=== PATIENT | male | born 1980 | race Caucasian/White ===

== ENCOUNTER 2018-10-21 08:49 | Emergency (ER) | payer OTHER ==
[~2018-10-21] VITALS: Ht 193 cm; Wt 131.5 kg
[~2018-10-21 08:49] MED LIST: Cleocin HCl150 MG PO; Ultram50 MG PO
[2018-10-21] MEDS ORDERED: CEPH500 PO (10:08)
== END 2018-10-21 10:00 | disposition home or self-care (01) ==
LOC: ER 08:49
DX: L03.116 Cellulitis of left lower limb (principal); Z88.0 Allergy status to penicillin; Z88.8 Allergy status to other drugs, medicaments and biological substances
CPT/HCPCS: 90471; 90714; 99282-25